=== PATIENT | female | born 1980 | race Two or more races ===

== ENCOUNTER 2019-11-11 06:00 | Day surgery (SDC) | payer OTHER | END 2019-11-11 16:50 | disposition home or self-care (01) | LOC: CIR.AMB 06:00 → ADM 11:00 → CIR.AMB 16:50 | PROVIDERS: ATTEND Plastic Surgery | DX: E65 Localized adiposity (principal); N64.81 Ptosis of breast; M62.08 Separation of muscle (nontraumatic), other site; N64.82 Hypoplasia of breast ==